=== PATIENT | male | born 1960 | race Caucasian/White ===

== ENCOUNTER → 2019-03-18 | Outpatient (CLI) | payer MEDICARE ==
--- NOTE | 2019-03-19 08:40 | RAD ---
LUMBAR SPINE 2-3V History: Sciatica, pain Comparison: September 25, 2013 MRI lumbar spine exam Findings: 3 views of the lumbar spine are submitted. Lumbar vertebral body stature is maintained. There is now grade 1 anterior spondylolisthesis at L4-5 due to L4 spondylolysis. There has been progression of moderate L4-5 degenerative disc disease. Small calcifications in the pelvis are more likely to be phleboliths. Impression: 1. There is now grade 1 anterior spondylolisthesis at L4-5 due to L4 spondylolysis. There has been progression of moderate L4-5 degenerative disc disease. Electronically signed by: Jose Liu MD (03/19/2019 8:37 AM) [id number]
== END | disposition home or self-care (01) ==
LOC: RAD 17:28
PROVIDERS: ATTEND Family Medicine
DX: M43.16 Spondylolisthesis, lumbar region (principal); M47.816 Spondylosis without myelopathy or radiculopathy, lumbar region; M51.36 Other intervertebral disc degeneration, lumbar region
CPT/HCPCS: 72100

== ENCOUNTER 2021-05-29 13:21 | Inpatient (IN) | payer BC, MEDICARE ==
[~2021-05-29] VITALS: Ht 182.9 cm; Wt 83.4 kg
[2021-05-29 13:56] VITALS: BP 147/89
[2021-05-29] MEDS ORDERED: ACETAMINOPHEN 500 MG TABLET PO PRN (15:15)
--- NOTE | 2021-05-29 15:31 | RAD ---
CT head without contrast dated 05/29/2021 3:26 PM Comparison: None CLINICAL INDICATION: Periorbital edema, possibly cellulitis. TECHNIQUE: Contiguous axial imaging of the head was performed from skull base to vertex. One or more of the following individualized dose reduction techniques were utilized for this examinat ion: 1. Automated exposure control 2. Adjustment of the mA and/or kV according to patient size 3. Use of iterative reconstruction technique. FINDINGS: Ventricles and sulci are within normal limits for age. No midline shift or mass effect. Brain parench yma is of normal attenuation. No hemorrhage or extra-axial collection. Posterior fossa and brainstem unremarkable. Mild preseptal soft tissue swelling on the left. The globes are symmetric. No post septal edema or fl uid collection. No periostitis or bone destruction. There is a remote medial orbital blowout fracture on the right. Paranasal sinuses and mastoid air cells are clear. No apparent calvarial abnormality. IMPRESSION: 1. No evidence of acute intracranial hemorrhage or mass. 2. Preseptal cellulitis on the left with no evidence of post septal edema or focal fluid collection. Electronically signed by: Luke May MD (05/29/2021 3:29 PM) [facility]
[2021-05-29] MEDS: KETOROLAC 30 MG/ML VIAL. IVP PRN (15:35)
[2021-05-29] MEDS: IV NORMAL SALINE 1,000ML 1,000 ML IV SCH ×2 (15:36→21:55)
[2021-05-29 15:43] LABS: BASO % 1 % (0-3); EOS # 0.1 x10^3/uL (0.0-0.7); EOS % 2 % (0-3); HEMATOCRIT 44.1 % (39.0-53.0); HEMOGLOBIN 14.5 g/dL (13.0-17.5); LYMPH # 1.2 x10^3/uL (1.0-4.8); LYMPH % 22 % (24-48); MEAN CORPUSCULAR HEMOGLOBIN 29 pg (25-35); MEAN CORPUSCULAR HGB CONC 33 g/dL (31-37); MEAN CORPUSCULAR VOLUME 89 fL (79-100); MONO # 0.8 x10^3/uL (0.0-1.1); MONO % 14 % (0-9); NEUT # 3.3 x10^3uL (1.8-7.7); NEUT % 61 % (31-73); PLATELET COUNT 203 x10^3/uL (140-400); RED BLOOD COUNT 4.95 x10^6/uL (4.30-5.70); RED CELL DISTRIBUTION WIDTH 13.3 % (11.5-14.5); WHITE BLOOD COUNT 5.4 x10^3/uL (4.0-11.0)
[2021-05-29 16:02] LABS: ALBUMIN 3.2 g/dL (3.4-5.0); C REACTIVE PROTEIN 4.6 mg/L (0-3.3); CALCIUM 8.4 mg/dL (8.5-10.1); CREATININE 1.1 mg/dL (0.7-1.3); GFR 68.3; POTASSIUM 3.7 mmol/L (3.5-5.1); TOTAL BILIRUBIN 0.4 mg/dL (0.2-1.0); TOTAL PROTEIN 6.3 g/dL (6.4-8.2)
[2021-05-29] MEDS: MORPHINE SULFATE 2 MG/ML DISP.SYRIN. IV PRN ×3 (17:17→21:07)
[2021-05-29] MEDS ORDERED: NORMAL SALINE IV SCH (17:30)
[2021-05-29] MEDS ORDERED: DEXTROSE 5% IV SCH (17:30)
[2021-05-29] MEDS ORDERED: ACYCLOVIR SODIUM IV SCH ×2 (17:30)
[2021-05-29] MEDS ORDERED: IOHEXOL 300 MG/ML 75 ML VIAL. IV ONE (17:30)
[2021-05-29] MEDS ORDERED: ACYCLOVIR SODIUM 500 MG in IV DEXTROSE 5% 100 ML IV SCH (17:30)
[2021-05-29] MEDS ORDERED: ACYCLOVIR 200 MG CAPSULE PO SCH (18:00)
[2021-05-29] MEDS ORDERED: CONTRAST GIVEN. MC PRN (18:15)
[2021-05-29 19:30] VITALS: BP 153/91
[2021-05-29] MEDS: DEXTROSE 5% IV SCH ×2 (19:42→22:00)
[2021-05-29] MEDS: ACYCLOVIR SODIUM IV SCH ×2 (19:42→22:00)
--- NOTE | 2021-05-29 20:19 | RAD ---
CT head and maxillofacial with contrast dated 05/29/2021. COMPARISON: Noncontrast study performed same day. INDICATION: Severe headache and periorbital cellulitis on the left. TECHNIQUE: Contiguous axial imaging the head and maxillofacial bones obtained following the intravenous administ ration of 70 cc Omnipaque 300. One or more of the following individualized dose reduction techniques were utilized for this examinat ion: 1. Automated exposure control 2. Adjustment of the mA and/or kV according to patient size 3. Use of iterative reconstruction technique FINDINGS: Postcontrast imaging of the brain shows no evidence of mass or abnormal enhancement. The dural venous sinuses are grossly patent. Brain parenchyma is of normal attenuation. No extra-axial collection. Images of the maxillofacial bones show soft tissue edema along the left cheek and left preseptal spac es and left supraorbital region. The globes are symmetric. Bilateral lens appear symmetric. There is a small bubble of gas along the lateral margin of the anterior chamber on the left which may or may n ot be within the anterior chamber. Overlying soft tissue swelling. No discrete rim-enhancing fluid co llection. No post septal edema or post septal gas. There is evidence of remote medial orbital blowout fracture on the right, unchanged. Paranasal sinuse s and mastoid air cells are otherwise clear. No apparent calvarial abnormality. Borderline enlarged b ilateral cervical chain lymph nodes, unchanged. IMPRESSION: 1. Preseptal edema on the left with edema over the left cheek and supraorbital region, possibly relat ed to given history of cellulitis. There is no evidence of abscess. There is a tiny bubble of gas jatinder ng the margin of the anterior chamber on the left may remain not be within the anterior chamber. Pj elate with any recent history of ophthalmologic surgery. 2. No post septal edema or post septal fluid collection. 3. No evidence of acute intracranial abnormality. No abnormal enhancement or mass. 4. Remote medial orbital blowout fracture on the right. Electronically signed by: Luke May MD (05/29/2021 8:16 PM) [facility]
[2021-05-29] MEDS: ZOLPIDEM 5 MG TABLET. PO PRN (21:07)
[2021-05-29] MEDS: HYDROcodone/APAP 5/325MG 1 TAB TABLET PO PRN (21:59)
[2021-05-29] MEDS: ERYTHROMYCIN 0.5% OPHTH OINTMENT 1GM TUBE. OS SCH (22:00)
[2021-05-29 23:26] VITALS: BP 147/83
[2021-05-30] MEDS: MORPHINE SULFATE 2 MG/ML DISP.SYRIN. IV PRN ×5 (02:35→14:10)
[2021-05-30 05:40] VITALS: BP 147/88
[2021-05-30] MEDS: HYDROcodone/APAP 5/325MG 1 TAB TABLET PO PRN (06:03)
[2021-05-30] MEDS: IV NORMAL SALINE 1,000ML 1,000 ML IV SCH ×2 (07:35→11:15)
[2021-05-30] MEDS: ACYCLOVIR SODIUM IV SCH ×3 (07:35→22:43)
[2021-05-30] MEDS: DEXTROSE 5% IV SCH ×3 (07:35→22:43)
[2021-05-30] MEDS: ERYTHROMYCIN 0.5% OPHTH OINTMENT 1GM TUBE. OS SCH ×3 (07:36→21:14)
[2021-05-30] MEDS: KETOROLAC 30 MG/ML VIAL. IVP PRN (07:37)
[2021-05-30] MEDS: GABAPENTIN 300 MG CAPSULE. PO PRN (07:37)
[2021-05-30 11:00] VITALS: BP 153/90
[2021-05-30 15:00] VITALS: BP 147/83
[2021-05-30] MEDS: amLODIPine BESYLATE 5 MG TABLET PO SCH (16:50)
[2021-05-30] MEDS: MORPHINE SULFATE 4 MG/ML DISP.SYRIN. IV PRN ×2 (17:03→21:14)
[2021-05-30 19:00] VITALS: BP 139/92
[2021-05-30] MEDS: ZOLPIDEM 5 MG TABLET. PO PRN (21:14)
--- NOTE | 2021-05-31 01:27 | PN ---
SUBJECTIVE: A 60-year-old male in with herpes zoster to the left temporal area around the left eye, cellulitis around the left eye, so he has periorbital cellulitis. The patient has been increased on his acyclovir 850 mg 3 times a day. The patient continues to be monitored carefully as to not affect the eyes, has been seen by a physician down at [facility]. The patient does have possible bubble as it were of gas, may be anaerobic, have to continue to monitor this carefully. Possibly old right orbital fracture on the right side. Otherwise, the patient is still in quite a bit of pain, receiving oral and IV pain medications. OBJECTIVE: VITAL SIGNS: Blood pressure 147/88, respiratory rate 16, pulse 94, afebrile. The patient is 95% on room air. HEENT: The patient's left side of the head is less swollen, but still marked blistering to the left temporal area and around the left eye. Left eye is partially swollen, shut, erythematous. Conjunctivae are injected. Pupils sensitive to light. Continue on erythromycin, IV acyclovir as well as Ancef for that matter. Pain medications. LUNGS: Clear. CARDIOVASCULAR: Stable. PLAN: The patient continued to be monitored carefully as any involvement of other neurological symptoms. The patient also was having severe headaches. IMPRESSION: Herpes zoster of the face with periorbital cellulitis. Continue on IV antibiotic therapy. Make further evaluation on him as indicated. Continue to monitor the progression of this element carefully. RAYNE/EUGENIO/[place]UST[place] DR: RAYNE/fara TID: [id number]
[2021-05-31] MEDS: MORPHINE SULFATE 4 MG/ML DISP.SYRIN. IV PRN ×2 (04:41→08:36)
[2021-05-31] MEDS: IV NORMAL SALINE 1,000ML 1,000 ML IV SCH (04:42)
[2021-05-31 04:49] VITALS: BP 133/89
[2021-05-31] MEDS: DEXTROSE 5% IV SCH ×2 (06:24→10:33)
[2021-05-31] MEDS: ACYCLOVIR SODIUM IV SCH ×2 (06:24→10:33)
[2021-05-31 07:00] VITALS: BP 128/80
[2021-05-31] MEDS: GABAPENTIN 300 MG CAPSULE. PO PRN (08:35)
[2021-05-31] MEDS: ERYTHROMYCIN 0.5% OPHTH OINTMENT 1GM TUBE. OS SCH (08:35)
[2021-05-31] MEDS: amLODIPine BESYLATE 5 MG TABLET PO SCH (08:35)
[2021-05-31] MEDS: HYDROcodone/APAP 5/325MG 1 TAB TABLET PO PRN (08:36)
[2021-05-31] MEDS ORDERED: AMOX1TAB61 PO (09:50)
[2021-05-31] MEDS ORDERED: AMLO-186 PO (09:50)
[2021-05-31] MEDS ORDERED: MORP30TA83 PO (09:50)
[2021-05-31] MEDS ORDERED: ERYT1OIN3 OS (09:50)
[2021-05-31] MEDS ORDERED: HYDR-2763 PO (09:50)
[2021-05-31] MEDS ORDERED: ACYC800T88 PO (09:50)
[2021-05-31] MEDS ORDERED: GABA-586 PO (09:50)
[2021-05-31] MEDS ORDERED: ACET500T68 PO (09:50)
[2021-05-31 11:00] VITALS: BP 124/78
[2021-05-31] MEDS ORDERED: ONDANSETRON PF 4 MG/2 ML VIAL. ONE (12:05)
[2021-05-31] MEDS ORDERED: ONDANSETRON PF 4 MG/2 ML VIAL. IVP ONE (12:30)
[2021-05-31] MEDS ORDERED: ONDANSETRON PF 4 MG/2 ML VIAL. IM ONE (12:30)
[2021-05-31] MEDS ORDERED: LACTOBACILLUS RHAMNOSUS GG 1 CAPSULE. PO SCH (21:00)
--- NOTE | 2021-06-01 23:28 | DS ---
DATE OF DISCHARGE: 05/31/2021 HOSPITAL COURSE: A 60-year-old gentleman in with herpes zoster and periorbital cellulitis, increased pressure of the left eyeball of over 30 mmHg. The patient was brought in because of severity of pain and lack of progress through oral treatment of acyclovir. He was placed on IV acyclovir 850 mg 3 times a day, IV morphine, Toradol, hydrocodone for pain relief as the pain was excruciating, erythromycin to the conjunctivitis; however, he was receiving also Ancef because of the periorbital cellulitis around that the left eye. Blistering had come down somewhat with swelling, but the pain was severe 9-10/10. The patient required aggressive IV antibiotic therapy as well as pain management and acyclovir. The patient made stable progress. He was still in critical condition. He was sent on to an weight control lecturer where he was then evaluated and also readmitted down to [facility] by Ophthalmology. His IgG antibody was nearly 4000. IMPRESSION: Acute herpes zoster periorbital cellulitis affecting the left eye conjunctivitis of the left eye, moderate protein malnutrition. PLAN: As above. Continue with discharge and transfer down to basically [facility] for further evaluation by the Ophthalmology Department. MYLENE DR: Lalo TID: [id number]
== END 2021-05-31 12:40 | disposition short-term general hospital (02) | DRG 603 ==
LOC: 1 SOUTH 13:47
PROVIDERS: ADMIT Family Medicine; ATTEND Family Medicine
DX: L03.213 Periorbital cellulitis (principal); B02.31 Zoster conjunctivitis; E44.0 Moderate protein-calorie malnutrition; H10.9 Unspecified conjunctivitis; Z68.24 Body mass index [BMI] 24.0-24.9, adult
CPT/HCPCS: 36415; 70450; 70488; 80053; 83605; 85025; 86140; 86787; 87040; J0133; J0690; J1885; J2270; J2405; Q9967; J7030

== ENCOUNTER → 2021-06-24 | Outpatient (CLI) | payer BC ==
[2021-05-31 11:00] VITALS: BP 124/78
[~2021-06-24] MED LIST: ACET500T68 PO; ACYC800T88 PO; AMLO-186 PO; AMOX1TAB61 PO; ERYT1OIN3 OS; GABA-586 PO; HYDR-2763 PO; IOHEXOL 350 MG/ML 100 ML VIAL. IV ONE; MORP30TA83 PO
[2021-06-24 13:58] LABS: BASO # 0.1 x10^3/uL (0.0-0.2); BASO % 1 % (0-3); EOS # 0.3 x10^3/uL (0.0-0.7); EOS % 4 % (0-3); HEMATOCRIT 42.1 % (39.0-53.0); LYMPH # 1.5 x10^3/uL (1.0-4.8); LYMPH % 21 % (24-48); MEAN CORPUSCULAR HEMOGLOBIN 31 pg (25-35); MEAN CORPUSCULAR HGB CONC 33 g/dL (31-37); MEAN CORPUSCULAR VOLUME 91 fL (79-100); MONO # 0.9 x10^3/uL (0.0-1.1); MONO % 13 % (0-9); NEUT # 4.4 x10^3uL (1.8-7.7); NEUT % 62 % (31-73); PLATELET COUNT 215 x10^3/uL (140-400); RED BLOOD COUNT 4.61 x10^6/uL (4.30-5.70); RED CELL DISTRIBUTION WIDTH 13.5 % (11.5-14.5); WHITE BLOOD COUNT 7.1 x10^3/uL (4.0-11.0)
[2021-06-24 14:14] LABS: HEMOGLOBIN ISTAT 14.3 gm/dL; POTASSIUM ISTAT 4.3 mmol/L (3.5-5.0)
[2021-06-24 14:15] LABS: ALBUMIN 3.5 g/dL (3.4-5.0); CREATININE 1.1 mg/dL (0.7-1.3); GFR 68.3; PHOSPHORUS 3.7 mg/dL (2.6-4.7); POTASSIUM 4.4 mmol/L (3.5-5.1)
--- NOTE | 2021-06-24 15:19 | RAD ---
CTA Chest with contrast: Clinical History: Left upper extremity DVT and dyspnea . Axial helical images of the chest were obtained after the administration of 150 cc of IV Omni 350 and timed appropriately for a pulmonary arterial study. Conventional axial reconstruction was performed in addition to coronal, sagittal and bilateral oblique MIP (maximum intensity projection). This calvin dy was ordered to detect possible pulmonary embolism. There are no filling defects to suggest pulmonary embolism. The lungs and pleural margins are clear. There is no mediastinal or hilar lymphadenopathy. The thoracic aorta appears normal. There is a left subclavian thrombosis. Impression: 1. No evidence of pulmonary embolism. 2. Left subclavian thrombosis. PQRS Compliance Statement: One or more of the following individualized dose reduction techniques were utilized for this examinat ion: 1. Automated exposure control 2. Adjustment of the mA and/or kV according to patient size 3. Use of iterative reconstruction technique Electronically signed by: Darrell Robertson III, MD (06/24/2021 3:16 PM) [facility]
== END ==
LOC: CT 13:26
PROVIDERS: ATTEND Family Medicine
DX: I82.B12 Acute embolism and thrombosis of left subclavian vein (principal); I26.99 Other pulmonary embolism without acute cor pulmonale; N19 Unspecified kidney failure
CPT/HCPCS: 36415; 71275; 80047; 80069; 85025; Q9967

== ENCOUNTER → 2021-06-24 | Outpatient (CLI) | payer BC ==
[2021-05-31 11:00] VITALS: BP 124/78
[~2021-06-24] MED LIST changes: -IOHEXOL 350 MG/ML 100 ML VIAL. IV ONE; +IOHEXOL 350 MG/ML 100 ML VIAL. ONE
--- NOTE | 2021-06-24 12:09 | RAD ---
STUDY: US DPLX VENOUS EXTREMITY UPPER LT INDICATION: Left arm swelling. PICC line removed 06/19/2021. TECHNIQUE: Color-flow and pulsed wave duplex ultrasound with compression of venous structures of the left upper extremity. COMPARISON: None available. FINDINGS: There is echogenic thrombus with lack of color Doppler flow extending from the left mid subclavian di stally through the left axillary vein and to the mid portions of the left brachial and basilic veins. Normal patency is found within the left cephalic, radial and ulnar veins. IMPRESSION: Deep venous thrombosis of the left subclavian vein extending into through the left axillary vein into the mid portions of the brachial and basilic veins. Findings reported to the ordering provider office by the performing fax machine operator at the conclusio n of the exam. FOR INTERNAL CODING PURPOSES RESULT CODE: (C) Electronically signed by: Richard Leslie MD (06/24/2021 12:06 PM) [id number]
== END ==
LOC: US 11:19
PROVIDERS: ATTEND Family Medicine
DX: I82.B12 Acute embolism and thrombosis of left subclavian vein (principal); M79.602 Pain in left arm; M79.89 Other specified soft tissue disorders
CPT/HCPCS: 93971